=== PATIENT | female | born 1965 | race Caucasian/White ===

== ENCOUNTER → 2019-07-13 09:48 | Outpatient (CLI) | payer BC, SELFPAY ==
--- NOTE | 2019-07-13 | DI.MG.S_ITS ---
BILATERAL DIGITAL SCREENING MAMMOGRAM 3D/2D WITH CAD: 07/13/2019 CLINICAL: Routine screening. Baseline exam. No prior exams were available for comparison. There are scattered fibroglandular elements in both breasts. Current study was also evaluated with a Computer Aided Detection (CAD) system. No significant masses, calcifications, or other findings are seen in either breast. IMPRESSION: NEGATIVE There is no mammographic evidence of malignancy. A 1 year screening mammogram is recommended. This exam was interpreted at Station ID: [id number]. NOTE: For mammograms, a report in lay terms will be sent to the patient. Approximately 15% of breast malignancies will not be visualized mammographically. In the management of a palpable breast mass, a negative mammogram must not discourage biopsy of a clinically suspicious lesion. Electronically Signed By: Sixto march/leora:07/15/2019 07:35:22 letter sent: Normal Exam ACR BI-RADS Category 1: Negative 3341F
== END ==
PROVIDERS: PCP Nurse Practitioner Family; Visit Provider Nurse Practitioner Family
DX: Z12.31 Encounter for screening mammogram for malignant neoplasm of breast (principal)
CPT/HCPCS: 77063; 77067

== ENCOUNTER → 2020-08-20 11:02 | Outpatient (CLI) | payer BC, SELFPAY ==
--- NOTE | 2020-08-20 | DI.MG.S_ITS ---
BILATERAL DIGITAL SCREENING MAMMOGRAM 3D/2D WITH CAD: 08/20/2020 CLINICAL: Routine screening. Comparison is made to exam dated: 07/13/2019 [facility]. There are scattered fibroglandular elements in both breasts. Current study was also evaluated with a Computer Aided Detection (CAD) system. No significant masses, calcifications, or other findings are seen in either breast. There has been no significant interval change. IMPRESSION: NEGATIVE There is no mammographic evidence of malignancy. A 1 year screening mammogram is recommended. This exam was interpreted at Station ID: [id number]. NOTE: For mammograms, a report in lay terms will be sent to the patient. Approximately 15% of breast malignancies will not be visualized mammographically. In the management of a palpable breast mass, a negative mammogram must not discourage biopsy of a clinically suspicious lesion. Electronically Signed By: Venu Patel M.D., jr/leora:08/20/2020 11:31:40 letter sent: Normal Exam ACR BI-RADS Category 1: Negative 3341F
== END ==
PROVIDERS: PCP Nurse Practitioner Family; Referring Provider Nurse Practitioner Family; Visit Provider Nurse Practitioner Family
DX: Z12.31 Encounter for screening mammogram for malignant neoplasm of breast (principal)
CPT/HCPCS: 77063; 77067

== ENCOUNTER → 2021-03-03 12:15 | Outpatient (CLI) | payer BC, SELFPAY ==
--- NOTE | 2021-03-03 12:19 | DI.US.S_ITS ---
PROCEDURE: US ABDOMEN LIMITED INDICATIONS: Abnormal results of liver function studies TECHNIQUE: Real-time scanning was performed of the abdominal and retroperitoneal organs, with image documentation. COMPARISON: None. FINDINGS: Liver: Liver is mildly enlarged measuring 16.2 cm. No focal lesions. Gallbladder: Gallbladder is without visualized stones. Wall thickness is within normal limits measuring 2 mm. Biliary ducts: Intrahepatic bile ducts are non-dilated. Extrahepatic bile duct caliber measures 7 mm. Normal is 6-7 mm or less in diameter, or 10 mm or less post-cholecystectomy. Pancreas: Visualized portions of the pancreas are sonographically normal. Miscellaneous: No free abdominal fluid. IMPRESSION: Mild hepatomegaly without focal lesion. Dictated by: Lucy Pollack M.D. on 03/03/2021 at 16:09 Approved by: Lucy Pollack M.D. on 03/03/2021 at 16:10
== END ==
PROVIDERS: Referring Provider Nurse Practitioner Psychiatric/Mental Health; Visit Provider Nurse Practitioner Psychiatric/Mental Health
DX: R94.5 Abnormal results of liver function studies (principal); R14.0 Abdominal distension (gaseous); K59.00 Constipation, unspecified
CPT/HCPCS: 76705

== ENCOUNTER → 2021-09-01 08:14 | Outpatient (CLI) | payer BC, SELFPAY ==
--- NOTE | 2021-09-01 | DI.MG.S_ITS ---
BILATERAL DIGITAL SCREENING MAMMOGRAM 3D/2D WITH CAD: 09/01/2021 CLINICAL: Routine screening. Comparison is made to exams dated: 08/20/2020 mammogram and 07/13/2019 mammogram - [facility]. There are scattered fibroglandular elements in both breasts. Current study was also evaluated with a Computer Aided Detection (CAD) system. No significant masses, calcifications, or other findings are seen in either breast. There has been no significant interval change. IMPRESSION: NEGATIVE There is no mammographic evidence of malignancy. A 1 year screening mammogram is recommended. This exam was interpreted at Station ID: [id number]. NOTE: For mammograms, a report in lay terms will be sent to the patient. Approximately 15% of breast malignancies will not be visualized mammographically. In the management of a palpable breast mass, a negative mammogram must not discourage biopsy of a clinically suspicious lesion. Electronically Signed By: Jelani traore/leora:09/01/2021 10:18:52 letter sent: Normal Exam ACR BI-RADS Category 1: Negative 3341F
== END ==
PROVIDERS: Referring Provider Family Medicine; Visit Provider Family Medicine
DX: Z12.31 Encounter for screening mammogram for malignant neoplasm of breast (principal)
CPT/HCPCS: 77063; 77067

== ENCOUNTER 2022-02-24 14:11 | Emergency (ER) | payer OTHER, SELFPAY ==
--- NOTE | 2022-02-24 14:26 | DI.US.S_ITS ---
PROCEDURE: US PERIPH VENOUS LOW EXTREM LT INDICATIONS: LEG SWELLING AND CALF PAIN WITH RECENT TRAVELING TECHNIQUE: Real-time imaging, as well as color and pulse Doppler interrogation, were performed of the lower extremity deep veins from the inguinal ligament to the popliteal fossa. COMPARISON: None. FINDINGS: The common femoral, femoral and popliteal veins are normally compressible, and free of intraluminal thrombus. Color and pulse Doppler demonstrate normal phasic intraluminal flow. There is normal augmentation response to distal compression maneuver. There is a Walters's cyst seen, which measures 6 x 3.1 x 1 cm. There is also surrounding fluid that measures 12.7 x 7 x 2.9 cm. No abnormal vascularity can be seen. IMPRESSION: Negative for deep venous thrombosis. Apparent ruptured Walters's cyst present. Dictated by: Zane Mims M.D. on 02/24/2022 at 14:16 Approved by: Zane Mims M.D. on 02/24/2022 at 14:17
[2022-02-24 14:31] VITALS: BP 176/89; PULSE 102; RESP 22; TEMP 37.2; O2SAT 97; BMI 36.1
--- NOTE | 2022-02-24 14:33 | ED_ITS ---
HPI - Extremity Injury (Lower) <EDYTA Fitzgerald - Last Filed: 02/24/22 16:34> General Chief Complaint: Extremity Problem,Nontraumatic Stated Complaint: Left leg swollen x 7 days, hard to walk Time Seen by Provider: 02/24/22 14:18 History of Present Illness HPI Narrative: This is a 56-year-old female presents to the emergency department complaining left leg which has been progressive for approximately one week. She states that she has a history of degenerative joint disease and left knee pain, states that she went to PT one week ago to help relieve some of pain, she has also had massage and acupuncture within the last week to help improve her left calf pain and left leg dependent edema. Patient states that she has not had any recent injury of any kind, there is no open wound, states that her left knee has arthritis and has been bothersome, she states it is swollen and has some swelling behind the knee but denies any recent illness, redness, tenderness, or new deficit. Patient states that her left medial calf is tender, she is not able to fully dorsiflex, plantar extension is equal bilaterally. She denies any sensation changes, denies any sore throat, cough, cold. She endorses feeling fatigued yesterday, took a nap, has been sleeping slightly more than usual. She denies any illness symptoms. Related Data Previous Rx's Medication Instructions Recorded Wellbutrin XL 300 mg 24 hr tablet, 300 mg PO QAM #90 tab NS 02/01/22 extended release (bupropion HCl) diclofenac sodium 3 % topical gel 1 applic TOPICAL QID PRN #100 g 02/24/22 Allergies Allergy/AdvReac Type Severity Reaction Status Date / Time No Known Drug Allergies Allergy Unverified 02/01/22 11:57 Review of Systems <EDYTA Fitzgerald - Last Filed: 02/24/22 16:34> Review of Systems Narrative: General: denies fever, chills Head/Neck: denies headache, neck pain Eyes: denies visual changes, eye pain Cardio: denies chest pain, palpitations Respiratory: denies shortness of breath, cough GI: denies abdominal pain, nausea, vomiting, or diarrhea : denies dysuria, hematuria or flank pain MSK: denies new joint pain, has pre-existing left knee pain, denies any muscle weakness, denies any sensation changes, endorses left calf pain and tenderness Skin: denies rash, itching or wound Neuro: denies numbness, tingling, dizziness Patient History <EDYTA Fitzgerald - Last Filed: 02/24/22 16:34> Medical History Fatty liver disease, nonalcoholic Social History Smoking Status: Never smoker Exam <EDYTA Fitzgerald - Last Filed: 02/24/22 16:34> Narrative Exam Narrative: Independently reviewed vitals signs and nursing notes. General: Awake, alert, nontoxic, no cardiorespiratory distress Head/Neck: Atraumatic, neck supple Eyes: EOMI, conjunctiva normal Nose: nares patent, no rhinorrhea Mouth/Throat: moist mucus membranes, posterior pharynx without erythema or lesion Cardio: Regular rate and rhythm, no peripheral edema Respiratory: respirations unlabored without wheezing, stridor, or rales. No retractions, hypoxia or tachypnea GI: Abdomen soft, nontender to palpation x4 quadrants, no guarding or rebound tenderness MSK: Moves all extremities, neurovascularly intact, full range of motion without deficit, dorsiflexion exacerbates left calf pain, no deficits on plantar extension, medial tenderness over gastrocnemius of left, dependent edema on left lower extremity, 2.5 cm greater than right measured over gastrocnemius, cap refill less than 2 seconds in left foot, no open wound, no fluctuance, left knee has a visible effusion and edema surrounding the left knee, no erythema or discoloration present. Skin: Normal capillary refill, no rash Neuro: Normal speech and cognition, normal gait Initial Vital Signs Initial Vital Signs: Vital Signs Temperature 98.9 F 02/24/22 14:31 Pulse Rate 102 H 02/24/22 14:31 Respiratory Rate 22 02/24/22 14:31 Blood Pressure 176/89 H 02/24/22 14:31 Pulse Oximetry 97 02/24/22 14:31 <Ashlee Stoner DO - Last Filed: 02/26/22 18:53> Initial Vital Signs Initial Vital Signs: Vital Signs Temperature 98.9 F 02/24/22 14:31 Pulse Rate 102 H 02/24/22 14:31 Respiratory Rate 22 02/24/22 14:31 Blood Pressure 176/89 H 02/24/22 14:31 Pulse Oximetry 97 02/24/22 14:31 Course <EDYTA Fitzgerald - Last Filed: 02/24/22 16:34> Orders Ordered: Discontinued Medications Acetaminophen (Acetaminophen 325 Mg Tablet) 975 mg PO NOW ONE Stop: 02/24/22 15:23 Ibuprofen (Ibuprofen 400 Mg Tablet) 800 mg PO NOW ONE Stop: 02/24/22 15:23 Lidocaine (Lidocaine Patch 1 Each Adh..Patch) 1 each TOP NOW ONE Stop: 02/24/22 15:23 Vital Signs Vital signs: Vital Signs - 8 hr 02/24/22 14:31 Temperature 98.9 F Pulse Rate 102 H Respiratory Rate 22 Blood Pressure 176/89 H Pulse Oximetry 97 <Ashlee Stoner DO - Last Filed: 02/26/22 18:53> Orders Ordered: Discontinued Medications Acetaminophen (Acetaminophen 325 Mg Tablet) 975 mg PO NOW ONE Stop: 02/24/22 15:23 Ibuprofen (Ibuprofen 400 Mg Tablet) 800 mg PO NOW ONE Stop: 02/24/22 15:23 Lidocaine (Lidocaine Patch 1 Each Adh..Patch) 1 each TOP NOW ONE Stop: 02/24/22 15:23 Vital Signs Vital signs: Vital Signs - 8 hr 02/24/22 14:31 Temperature 98.9 F Pulse Rate 102 H Respiratory Rate 22 Blood Pressure 176/89 H Pulse Oximetry 97 MDM - Extremity Injury (Lower) <EDYTA Fitzgerald - Last Filed: 02/24/22 16:34> Imaging Data US - DVT: Radiologist's Impression: PROCEDURE:? US PERIPH VENOUS LOW EXTREM LT ? INDICATIONS:? LEG SWELLING AND CALF PAIN WITH RECENT TRAVELING ? TECHNIQUE:? Real-time imaging, as well as color and pulse Doppler interrogation, were performed of the lower extremity deep veins from the inguinal ligament to the popliteal fossa.? ? COMPARISON:? None. ? FINDINGS:? The common femoral, femoral and popliteal veins are normally compressible, and free of intraluminal thrombus.? Color and pulse Doppler demonstrate normal phasic intraluminal flow.? There is normal augmentation response to distal compression maneuver. ? ? There is a Walters's cyst seen, which measures 6 x 3.1 x 1 cm.? There is also surrounding fluid that measures 12.7 x 7 x 2.9 cm.? No abnormal vascularity can be seen. ? ? IMPRESSION:? ? Negative for deep venous thrombosis. ? Apparent ruptured Walters's cyst present. ? ? Dictated by: Zane Mims M.D. on 02/24/2022 at 14:16 ? ? Approved by: Zane Mims M.D. on 02/24/2022 at 14:17 ? Extremity x-ray #2: Radiologist's Impression: PROCEDURE:? XR KNEE LT 3V ? INDICATIONS:? knee effusion, DJD/arthritis? ? TECHNIQUE:? 3 views of the knee were acquired.? ? COMPARISON:? None. ? FINDINGS:? ? Bones:? No fractures or dislocations.? Small osteophytes.? Mild joint space narrowing at the medial compartment.? No suspicious bony lesions.? ? Soft tissues:? Small joint effusion.? No suspicious soft tissue calcifications.? ? ? IMPRESSION:? Mild left knee DJD.? Small joint effusion. ? ? Dictated by: Jelani Padgett M.D. on 02/24/2022 at 15:55 ? ? Approved by: Jelani Padgett M.D. on 02/24/2022 at 15:56 ? [facility] Narrative Medical decision making narrative: This is a 56-year-old female presents to the emergency department for concern about left lower extremity swelling over the last seven days. Patient denies any new trauma or injury, complains of left knee pain at baseline with degenerative changes that are not new, a swollen knee joint, and pain in the posterior knee. X-ray of her left knee shows mild degenerative joint disease with a small joint effusion, ultrasound her left lower extremity is negative for venous thrombosis with an apparent ruptured Walters cyst present. There is a Walters cyst seen on ultrasound measuring 6 x 3.1 x 1 cm, there is surrounding fluid the measures 12.7 x 7 x 2.9 cm. No abnormal vascularity was visualized. Patient had normal augmentation response to distal compression maneuver. Patient does not have any erythema, open wound, discoloration, or sensation changes. She is neurovascularly intact, reports sensation of instability and has been using a knee immobilizer for the last few days. Patient denies wanting a new knee immobilizer, she has one to be using. She is traveling next week and one to rule out DVT. Patient was recommended to use an Reece wrap bandage or compression stockings as needed which go above the knee, to help with stability or to use her knee immobilizer while at ambulating. Patient understands, will return for any new or worsening symptoms. She has seen Chandler Gaytan in the past and wishes to establish care with a PCP here in our system, steroid injection to help improve the swelling within the joint if recommended, she understands to follow-up with orthopedics and or Dr. Pennington for evaluation of her complaint. I recommended continuing with physical therapy and to follow-up with her PCP. Patient is appropriate and amenable to discharge home. Vital signs are stable on repeat examination is unremarkable. Patient has been informed of results. Patient has been given strict return to ER precautions for any new or worsening symptoms. Patient understands to follow up closely with outpatient providers as instructed. Patient understands plan and agrees to discharge home. All questions and concerns answered at this time. Discharge Plan Departure Patient Disposition: Home Clinical Impression: Walters's cyst, ruptured, Lower extremity edema, Effusion of knee joint, left Instructions: DI for Walters Cyst, DI for Knee Effusion Activity Restrictions/Additional Instructions: *You have been diagnosed with a ruptured Walters cyst, and the left knee effusion. This is likely where all the edema in your left leg is coming from. Your x-ray shows a small effusion in your left knee, please use your knee immobilizer when your out about to help protect your knee and keep it supported. Use topical diclofenac gel, this can be helpful for pain and swelling. Try to reduce overuse, while staying active. Your x-ray shows a small knee effusion. I wish you the best, please return for any worsening symptoms, follow up with her primary care provider, you may call the number listed below if you would like to switch primary care providers, you may call and schedule appoint with [facility] and/or Dr. Pennington for evaluation for steroid injection. Thank you for trusting us with your care, wish you the best and a safe vacation. *What to do: *Please continue to take your regular medications as directed. [x ] New medication prescriptions sent to your pharmacy: [[facility] ] [ ] New medication written as a paper prescription [ ] No new medications given *Please follow up with your primary care provider in 2-3 days, call for an appointment. Let them know you were seen in the Emergency Department and that we asked that you be seen for follow-up. We will electronically transmit a record of today's note if your PCP is in our system *If you do not have a primary care provider please contact [phone] to [facility] with one of the [facility] primary care providers. *Return to Emergency Department if you should have any new, worsening or concerning symptoms, such as [fever greater than 101F, chills, worsening pain, persistent vomiting or other bothersome symptoms] Prescriptions: New diclofenac sodium 3 % gel 1 applic topical QID PRN (Reason: knee pain) Qty: 100 0RF No Action bupropion HCl [Wellbutrin XL] 300 mg tablet extended release 24 hr 300 mg PO QAM Qty: 90 1RF Referrals: [facility] [Provider Group] Edgar Pennington DO [Physician] - Chandler Gaytan ARNP [Primary Care Provider] - <Ashlee Stoner DO - Last Filed: 02/26/22 18:53> Cosign ED Attending Cosmayelinature Attestation: I was immediately available in the department for consultation. Documentation has been reviewed.
--- NOTE | 2022-02-24 14:36 | DI.RAD.S_ITS ---
PROCEDURE: XR KNEE LT 3V INDICATIONS: knee effusion, DJD/arthritis? TECHNIQUE: 3 views of the knee were acquired. COMPARISON: None. FINDINGS: Bones: No fractures or dislocations. Small osteophytes. Mild joint space narrowing at the medial compartment. No suspicious bony lesions. Soft tissues: Small joint effusion. No suspicious soft tissue calcifications. IMPRESSION: Mild left knee DJD. Small joint effusion. Dictated by: Jelani Padgett M.D. on 02/24/2022 at 15:55 Approved by: Jelani Padgett M.D. on 02/24/2022 at 15:56
--- NOTE | 2022-02-24 16:42 | PC.NURSE ---
Pt declines medications and states she has a knee immobilizer at home
== END 2022-02-24 16:42 | disposition home or self-care (01) ==
PROVIDERS: Emergency Provider Nurse Practitioner Critical Care Medicine; PCP Registered Nurse Diabetes Educator
DX: M66.0 Rupture of popliteal cyst (principal); R60.0 Localized edema; M25.462 Effusion, left knee
CPT/HCPCS: 73562; 93971; 99283

== ENCOUNTER → 2022-08-20 09:32 | Outpatient (CLI) | payer OTHER, SELFPAY ==
--- NOTE | 2022-08-20 09:34 | DI.RAD.S_ITS ---
PROCEDURE: XR WRIST RT MIN 3V INDICATIONS: Right arm injury -radial pain TECHNIQUE: 4 views of the wrist were acquired. COMPARISON: None. FINDINGS: Bones: No fractures or dislocations. No suspicious bony lesions. Scaphoid view: Unremarkable Soft tissues: No suspicious soft tissue calcifications. IMPRESSION: Unremarkable right wrist radiographs Approved by: Freddie Garay M.D. on 08/20/2022 at 9:12
--- NOTE | 2022-08-20 09:34 | DI.RAD.S_ITS ---
PROCEDURE: XR FOREARM RT 2V INDICATIONS: Right arm injury -radial pain TECHNIQUE: 2 views of the forearm were acquired. COMPARISON: None. FINDINGS: Bones: No fractures or dislocations. No suspicious bony lesions. Soft tissues: No suspicious soft tissue calcifications or masses. IMPRESSION: Normal right forearm radiographs Approved by: Freddie Garay M.D. on 08/20/2022 at 9:38
== END ==
PROVIDERS: PCP Registered Nurse Diabetes Educator; Referring Provider Registered Nurse; Visit Provider Registered Nurse
DX: S59.911A Unspecified injury of right forearm, initial encounter (principal); X58.XXXA Exposure to other specified factors, initial encounter
CPT/HCPCS: 73090; 73110

== ENCOUNTER → 2022-09-06 07:51 | Outpatient (CLI) | payer OTHER, SELFPAY ==
--- NOTE | 2022-09-06 | DI.MG.S_ITS ---
BILATERAL DIGITAL SCREENING MAMMOGRAM 3D/2D WITH CAD: 09/06/2022 CLINICAL: Routine screening. Comparison is made to exams dated: 09/01/2021 mammogram, 08/20/2020 mammogram, and 07/13/2019 mammogram - [facility]. There are scattered areas of fibroglandular density in both breasts (category b / 25%-50% glandular tissue). Current study was also evaluated with a Computer Aided Detection (CAD) system. No significant masses, calcifications, or other findings are seen in either breast. There has been no significant interval change. IMPRESSION: NEGATIVE There is no mammographic evidence of malignancy. A 1 year screening mammogram is recommended. Based on the Tyrer Cuzick model (a risk assessment model) the patient's lifetime risk is 9.7% and her 10 year risk is 3.3%. According to the ACR, ACS, and NCCN guidelines, an annual breast MRI exam along with mammogram is recommended if the patient's lifetime risk is 20% or greater. This exam was interpreted at Station ID: [id number]. NOTE: For mammograms, a report in lay terms will be sent to the patient. Approximately 15% of breast malignancies will not be visualized mammographically. In the management of a palpable breast mass, a negative mammogram must not discourage biopsy of a clinically suspicious lesion. Electronically Signed By: Jelani traore/leora:09/06/2022 09:03:52 letter sent: Normal Exam ACR BI-RADS Category 1: Negative 3341F
== END ==
PROVIDERS: PCP Registered Nurse Diabetes Educator; Referring Provider Registered Nurse Diabetes Educator; Visit Provider Registered Nurse Diabetes Educator
DX: Z12.31 Encounter for screening mammogram for malignant neoplasm of breast (principal)
CPT/HCPCS: 77063; 77067

== ENCOUNTER → 2024-01-12 07:57 | Outpatient (CLI) | payer OTHER, SELFPAY ==
--- NOTE | 2024-01-12 07:59 | DI.MG.S_ITS ---
BILATERAL DIGITAL SCREENING MAMMOGRAM 3D/2D WITH CAD: 01/12/2024 CLINICAL: Routine screening. Comparison is made to exams dated: 09/06/2022 mammogram, 09/01/2021 mammogram, and 08/20/2020 mammogram - [facility]. There are scattered areas of fibroglandular density in both breasts (category b / 25%-50% glandular tissue). Current study was also evaluated with a Computer Aided Detection (CAD) system. No significant masses, calcifications, or other findings are seen in either breast. There has been no significant interval change. IMPRESSION: NEGATIVE There is no mammographic evidence of malignancy. A 1 year screening mammogram is recommended. Based on the Tyrer Cuzick model (a risk assessment model) the patient's lifetime risk is 9.5% and her 10 year risk is 3.5%. According to the ACR, ACS, and NCCN guidelines, an annual breast MRI exam along with mammogram is recommended if the patient's lifetime risk is 20% or greater. This exam was interpreted at Station ID: [id number]. NOTE: For mammograms, a report in lay terms will be sent to the patient. Approximately 15% of breast malignancies will not be visualized mammographically. In the management of a palpable breast mass, a negative mammogram must not discourage biopsy of a clinically suspicious lesion. Electronically Signed By: Jelani traore/leora:01/12/2024 16:31:52 letter sent: Normal Exam ACR BI-RADS Category 1: Negative 3341F
== END ==
LOC: MAMMO 07:58
PROVIDERS: PCP Registered Nurse Diabetes Educator; Referring Provider Registered Nurse Diabetes Educator; Visit Provider Registered Nurse Diabetes Educator
DX: Z12.31 Encounter for screening mammogram for malignant neoplasm of breast (principal); R92.323 Mammographic fibroglandular density, bilateral breasts
CPT/HCPCS: 77063; 77067